=== PATIENT | female | born 1995 | race Caucasian/White ===

== ENCOUNTER 2020-06-30 16:36 | Emergency (ER) | payer OTHER, SELFPAY ==
[2020-06-30 16:46] VITALS: BP 133/90; PULSE 87; RESP 12; TEMP 37.1; O2SAT 100; BMI 27.4
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
[2020-06-30 16:58] VITALS: PULSE 77; O2SAT 100
[2020-06-30 17:00] VITALS: BP 124/76; PULSE 75; O2SAT 100
[2020-06-30] MEDS: IBUPROFEN 400 MG TABLET 800 MG PO (17:15)
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
--- NOTE | 2020-06-30 17:18 | PC.NURSE ---
Bilateral pupils are 3mm equal and reactive to light.
== END 2020-06-30 17:28 | disposition home or self-care (01) ==
PROVIDERS: Emergency Provider Emergency Medicine
DX: S16.1XXA Strain of muscle, fascia and tendon at neck level, initial encounter (principal); V89.2XXA Person injured in unspecified motor-vehicle accident, traffic, initial encounter
CPT/HCPCS: 99282; 99283